=== PATIENT | female | born 1985 | race Caucasian/White ===

== ENCOUNTER 2022-01-24 09:47 | Emergency (ER) | payer MEDICAID ==
[~2022-01-24] VITALS: Ht 170.2 cm; Wt 84.0 kg
[2022-01-24 09:56] VITALS: BP 114/61
[2022-01-24 10:20] LABS: BASOPHILS % 0.4 % (0.0-2.0); EOSINOPHILS % 1.1 % (0.0-5.0); HEMATOCRIT. 41.6 % (36.0-48.0); HEMOGLOBIN. 14.3 g/dL (12.0-16.0); LYMPHOCYTES % 19.9 % (20.0-50.0); MEAN CORPUSCULAR HEMOGLOBIN 31.9 pg (28.0-32.0); MEAN CORPUSCULAR VOLUME 92.9 fL (81.0-99.0); MEAN PLATELET VOLUME 7.9 fl (7.4-10.4); MONOCYTES % 5.4 % (2.0-8.0); NEUTROPHILS % 73.2 % (40.0-76.0); PLATELET 343 x1000/uL (130-400); RED BLOOD CELL COUNT 4.48 mill/uL (4.2-5.4); RED CELL DISTRIBUTION WIDTH 13.6 % (11.6-14.6)
[2022-01-24 10:21] LABS: CLARITY URINE CLOUDY (CLEAR); COLOR URINE YELLOW (YELLOW); KETONES URINE NEGATIVE (NEGATIVE); LEUKOCYTE ESTERASE URINE 3+ (NEGATIVE); NITRITE URINE NEGATIVE (NEGATIVE); OCCULT BLOOD URINE 3+ (NEGATIVE); PH URINE 5.5 (4.5-8.0); PROTEIN URINE NEGATIVE (NEGATIVE); SPECIFIC GRAVITY URINE 1.018 (1.005-1.030); UROBILINOGEN URINE 0.2 E.U./dL (0.2-1.0)
[2022-01-24 10:30] LABS: CHLORIDE 108 mEq/L (98-107)
[2022-01-24 10:40] LABS: B-HCG QUANTITATIVE 40 mIU/mL (<3)
[2022-01-24] MEDS ORDERED: ACETAMINOPHEN 325MG TABLET PO ONE (12:15)
[2022-01-24] MEDS ORDERED: NITR-87 MT (13:13)
== END 2022-01-24 14:55 | disposition home or self-care (01) ==
LOC: ER 10:35
DX: O20.0 Threatened abortion (principal); O23.41 Unspecified infection of urinary tract in pregnancy, first trimester; N39.0 Urinary tract infection, site not specified; Z3A.01 Less than 8 weeks gestation of pregnancy
CPT/HCPCS: 36415; 76801; 80053; 81003; 84702; 85025; 86850; 86900; 99284